=== PATIENT | male | born 1980 | race Caucasian/White ===

== ENCOUNTER 2021-12-13 00:17 | Emergency (ER) | payer OTHER ==
[~2021-12-13] VITALS: Ht 182.9 cm; Wt 99.8 kg
[2021-12-13 00:24] VITALS: BP_SYST 130
--- NOTE | 2021-12-13 00:27 | NUR ---
PT HERE C/O URINARY FREQUENCY AND LOWER ABD PRESSURESINCE 1999. DENIES N/V/D, DENIES FEVER PMH:DENIES PT AAOX4, NO SOB NOTED AND NAD. PENDING MD RIOJAS
--- NOTE | 2021-12-13 00:37 | NUR ---
Pt from home with c/o lower abd pain, flank pain and testical pain that started at 12/12. Pt rates pain a 5/10 at this moment. Reports having urinary frequency and urgency with minimal emptying. VSS. Safety precautions in place and connected to monitor.
--- NOTE | 2021-12-13 00:39 | NUR ---
Dr. Lubin at bedside with patient for evaluation.
[2021-12-13] MEDS ORDERED: KETOROLAC TROMETHAMINE 30 MG VIAL IVP ONE (00:45)
[2021-12-13] MEDS ORDERED: ONDANSETRON HCL 4 MG/2 ML VIAL IVP ONE ×2 (00:45)
--- NOTE | 2021-12-13 01:06 | NUR ---
Pt states that his pain has subsided and wishes to hold on pain medications at this time. made aware.
--- NOTE | 2021-12-13 01:09 | NUR ---
Pt to radiology via [place] accompanied by staff.
--- NOTE | 2021-12-13 01:15 | NUR ---
PT RETURNED FROM RADIOLOGY VIA GURNEY ACCOMPANIED BY STAFF.
[2021-12-13 01:28] LABS: BASOPHILS # (AUTO) 0.1 K/uL (0.0-0.2); BASOPHILS % (AUTO) 0.8 % (0.0-2.0); CALCIUM 8.4 mg/dL (8.4-11.0); CREATININE 1.12 mg/dL (0.55-1.30); EOSINOPHILS % (AUTO) 0.3 % (0.0-4.0); HEMATOCRIT 39.9 % (36-54); HEMOGLOBIN 13.5 g/dL (14.0-18.0); LYMPHOCYTES # (AUTO) 0.7 K/uL (1.0-5.5); LYMPHOCYTES % (AUTO) 5.9 % (20.5-51.5); MEAN CORPUSCULAR HEMOGLOBIN 30 pg (27-31); MEAN CORPUSCULAR HGB CONC 34 % (32-36); MEAN CORPUSCULAR VOLUME 88 fL (79.0-98.0); MONOCYTES # (AUTO) 0.4 K/uL (0.0-1.0); MONOCYTES % (AUTO) 3.7 % (1.7-9.3); NEUTROPHILS # (AUTO) 10.7 K/uL (1.8-7.7); NEUTROPHILS % (AUTO) 89.3 % (40.0-70.0); PLATELET COUNT (AUTO) 212 K/uL (130-430); RED BLOOD CELL COUNT(AUTO) 4.52 MIL/uL (4.2-6.2); RED CELL DISTRIBUTION WIDTH 13.2 % (9.0-15.0); WHITE BLOOD COUNT (AUTO) 11.9 K/uL (4.8-10.8)
[2021-12-13 01:34] LABS: TOTAL BILIRUBIN 0.3 mg/dL (0.0-1.0)
[2021-12-13] MEDS ORDERED: NACL 0.9% 1,000 ML IV ONE (02:30)
[2021-12-13 02:32] LABS: BILIRUBIN,URINE NEGATIVE (NEGATIVE); BLOOD, URINE 3+ (NEGATIVE); CLARITY/URINE HAZY (CLEAR); COLOR,URINE YELLOW (YELLOW); GLUCOSE,URINE NEGATIVE (NEGATIVE); KETONES,URINE 1+ (NEGATIVE); LEUKOCYTE ESTERASE ,URINE NEGATIVE (NEGATIVE); NITRITE, URINE NEGATIVE (NEGATIVE); PROTEIN URINE NEGATIVE (NEGATIVE); UROBILINOGEN,URINE 0.2 (0.2-1.0)
[2021-12-13 02:36] LABS: BACTERIA,URINE FEW /HPF (None Seen); MUCUS,URINE None Seen /LPF (None Seen); WBC,URINE 0-3 /HPF (0-3)
[2021-12-13] MEDS ORDERED: PERC10 PO (03:01)
[2021-12-13 03:15] VITALS: BP_SYST 130
--- NOTE | 2021-12-13 03:15 | NUR ---
Patient given written and verbal discharge instructions and verbalizes understanding. ER Dr. Lubin discussed with patient the results and treatment provided. Patient in stable condition. ID arm band removed. IV catheter removed intact and dressing applied, no active bleeding. Rx of percocet given. Patient educated on pain management and to follow up with PMD. Pain Scale 0. Opportunity for questions provided and answered. Medication side effect fact sheet provided.
== END 2021-12-13 03:15 | disposition home or self-care (01) ==
LOC: SED 00:17
DX: N20.0 Calculus of kidney (principal); R10.32 Left lower quadrant pain; R11.0 Nausea; R35.0 Frequency of micturition; Z79.899 Other long term (current) drug therapy
CPT/HCPCS: 99284; 74176; 96374; 96375; 80053; 81000; 85025; 36415; 76376; J1885; J2405